=== PATIENT | female | born 1950 | race Caucasian/White ===

== ENCOUNTER 2019-06-23 09:28 | Outpatient (CLI) | payer MEDICARE, BC | END 2019-06-23 09:29 | disposition home or self-care (01) | LOC: CTENTCT 09:28 | PROVIDERS: ATTEND Student in an Organized Health Care Education/Training Program | DX: J32.9 Chronic sinusitis, unspecified (principal) | CPT/HCPCS: 70486 ==

== ENCOUNTER 2019-08-22 06:20 | Outpatient (CLI) | payer MEDICARE, BC, OTHER ==
[2019-08-22 11:41] LABS: Hemoglobin 14.6 g/dL (12.0-16.0)
[2019-08-22 12:05] LABS: Anion Gap 12 mmol/L (10-20); BUN (Urea Nitrogen) 17 mg/dL (9.8-20.1); Calc. Creatinine Clearance 0 mL/min (70-130); Calcium 10.7 mg/dL (7.8-10.44); Carbon Dioxide 24 mmol/L (23-31); Chloride 110 mmol/L (98-107); Estimated GFR-MDRD 85; Glucose 105 mg/dL (80-115); Sodium 142 mmol/L (136-145)
[2019-08-22 17:22] LABS: SARS-CoV-2 MS2 Positive; SARS-CoV-2 N Gene Negative; SARS-CoV-2 S Gene Negative; SARS-CoV-2 orf1ab Negative
== END 2019-08-22 06:21 | disposition home or self-care (01) ==
LOC: LABBT 06:20
PROVIDERS: ATTEND Student in an Organized Health Care Education/Training Program
DX: Z01.818 Encounter for other preprocedural examination (principal); Z11.59 Encounter for screening for other viral diseases; J32.9 Chronic sinusitis, unspecified
CPT/HCPCS: 80048; 85014; 85018; 93005; U0003; 87635; 93010

== ENCOUNTER 2020-03-31 08:36 | Outpatient (CLI) | payer MEDICARE, BC ==
--- NOTE | 2020-03-31 12:29 | NM ---
Radionucleotide parathyroid scan HISTORY: Hyperparathyroidism. FINDINGS: Intermediate and 1 hour images show physiologic uptake of radiotracer within the salivary g lands and thyroid gland. Uptake over the right subclavian vein and the focus of uptake at the right supraclavicular level likely related to small amount of infiltration during radiotracer injection in the right arm. No corresponding mass or lymph node on the CT images. On the 2 hour delayed images, a focus of increased radiotracer uptake lies immediately posterior to t he left thyroid lobe, running somewhat vertically linear just to the left of the esophagus. On the CT attenuation correction images, a non-hyperdense linear lesion is present with a tubular vessel ext ending inferiorly from it. IMPRESSION : Positive exam. Evidence of parathyroid adenoma immediately posterior to the left thyroid lobe.
== END 2020-03-31 08:37 | disposition home or self-care (01) ==
LOC: NM 08:36
PROVIDERS: ATTEND Student in an Organized Health Care Education/Training Program
DX: E21.3 Hyperparathyroidism, unspecified (principal); D35.1 Benign neoplasm of parathyroid gland
CPT/HCPCS: 78072; A9500

== ENCOUNTER 2020-05-25 06:01 | Observation (INO) | payer MEDICARE, BC ==
[2020-05-25] MEDS ORDERED: Fentanyl 250 MCG/5 ML VIAL ONE (06:38)
[2020-05-25] MEDS ORDERED: Midazolam HCl 2 mg/2 ml Vial ONE (06:38)
[2020-05-25] MEDS ORDERED: XYLOCAINE 2%-EPI 1:100,000 20 ML VIAL ONE (07:50)
[2020-05-25] MEDS ORDERED: Phenylephrine 10 MG/ML VIAL ONE (08:03)
[2020-05-25] MEDS ORDERED: SUGAMMADEX SODIUM 200 MG/2 ML VIAL ONE (09:32)
[2020-05-25] MEDS ORDERED: Metoprolol Tartrate 5 MG/5 ML VIAL ONE (10:12)
[2020-05-25] MEDS ORDERED: Ketorolac Tromethamine 30 MG/ML VIAL IVP PRN (10:15)
[2020-05-25] MEDS ORDERED: Promethazine HCl 25 MG/ML VIAL IM PRN (10:15)
[2020-05-25] MEDS ORDERED: Meperidine HCl/PF 25 MG/ML VIAL SLOW IVP PRN (10:15)
[2020-05-25] MEDS ORDERED: HYDROmorphone 2 MG/ML VIAL SLOW IVP PRN (10:15)
[2020-05-25] MEDS ORDERED: Ondansetron HCl/PF 4 MG/2 ML Vial IVP PRN (10:15)
[2020-05-25] MEDS ORDERED: Promethazine HCl 25 MG/ML VIAL SLOW IVP PRN (10:15)
[2020-05-25] MEDS ORDERED: Morphine Sulfate 2 MG/ML SYRINGE SLOW IVP PRN (10:15)
[2020-05-25] MEDS ORDERED: HYDROcodone/Acetaminophen 5/325 mg Tablet PO PRN ×2 (10:25)
[2020-05-25] MEDS ORDERED: Ondansetron PF 4 MG/2 ML Vial IVP PRN (10:27)
[2020-05-25] MEDS ORDERED: Calcium Gluconate 4.6 MEQ in Sodium Chloride 0.9% 100 ML IVPB SCH (10:30)
[2020-05-25] MEDS ORDERED: Metoprolol Tartrate 5 MG/5 ML VIAL IVP SCH (10:30)
[2020-05-25] MEDS ORDERED: Calcitriol 0.25 MCG CAP PO SCH (10:30)
[2020-05-25] MEDS ORDERED: Calcium Gluconate 9.2 MEQ in Sodium Chloride 0.9% 100 ML IVPB SCH (11:00)
[2020-05-25] MEDS: Lactated Ringer's 1,000 ML IV SCH (12:58)
[2020-05-25] MEDS: Calcium Carbonate 500 MG ChewTAB PO SCH ×2 (12:58→17:14)
[2020-05-25] MEDS ORDERED: Dexamethasone 20 MG/5 ML VIAL ONE (15:08)
[2020-05-25] MEDS ORDERED: PROPOFOL 200 MG/20 ML VIAL ONE (15:08)
[2020-05-25] MEDS ORDERED: Ondansetron PF 4 MG/2 ML Vial ONE (15:08)
[2020-05-25] MEDS ORDERED: Rocuronium Bromide 10 MG/ML (10ML VIAL) ONE (15:08)
[2020-05-25] MEDS ORDERED: Lidocaine 1% PF 5 ML VIAL ONE (15:08)
[2020-05-25 17:24] VITALS: BMI 20.2
[2020-05-25] MEDS: Docusate Sodium 100 MG/10 ML UDCUP PO SCH (22:37)
[2020-05-26 06:36] LABS: Calcium 9.8 mg/dL (7.8-10.44); Magnesium 1.7 mg/dL (1.6-2.6); Phosphorus 4.1 mg/dL (2.3-4.7)
[2020-05-26] MEDS: Docusate Sodium 100 MG/10 ML UDCUP PO SCH (08:36)
[2020-05-26] MEDS: Calcium Carbonate 500 MG ChewTAB PO SCH ×2 (08:36→12:04)
[2020-05-26] MEDS ORDERED: Magnesium 2 GM/50 ML 2 GM in Premix Bag 1 BAG IVPB SCH (09:00)
[2020-05-26] MEDS ORDERED: Calcitriol 0.25 MCG CAP PO SCH (09:00)
[2020-05-26] MEDS: Lactated Ringer's 1,000 ML IV SCH (09:36)
[2020-05-26 11:31] VITALS: BP 116/74
[2020-05-26 11:32] VITALS: TEMP 97.5
--- NOTE | 2020-05-27 06:52 | OP ---
DATE OF PROCEDURE: 05/25/2020 CHIEF COMPLAINT: Hyperparathyroidism and hypercalcemia. PREOPERATIVE DIAGNOSES: Hyperparathyroidism, hypercalcemia, parathyroid adenoma, osteopenia. POSTOPERATIVE DIAGNOSES: Parathyroid adenoma, superior and inferior; hypercalcemia; hyperparathyroidism; and osteopenia. PROCEDURES PERFORMED: Excision of left superior and inferior parathyroid. PERMIT: Procedures, benefits, and risks including those of bleeding, infection, injury from anesthesia, allergic reaction, scar tissue, damage to nerves and vessels, hoarseness and shortness of breath were discussed with the patient and family, who expressed the understanding of the information and consent form was signed and witnessed and a paper copy of the consent form is available for review in the paper chart. INDICATION: This is a female patient, presenting to clinic with osteopenia, hypercalcemia, and hyperparathyroidism with nuclear medicine scan identifying localizing left inferior and left mid potential parathyroid adenoma with increased uptake. Given the risks and benefits, the patient opted for an operative intervention. ASSISTANTS: None. FINDINGS: Left superior and left inferior parathyroid adenomas measuring greater than 200 mg inferiorly and greater than 600 mg superiorly. DESCRIPTION OF PROCEDURE: The patient was brought to the operating room and laid supine on the operating room table. General endotracheal anesthesia was administered. The airway and landmarks were outlined with a marking pen and a midline incision inferior to the cricoid and superior to the sternal notch was identified in a natural skin crease. The area was marked and 1% lidocaine with 1:100,000 epinephrine was injected. After this was completed, the patient was then prepped and draped in a sterile fashion and the procedure commenced. A 15 blade scalpel was used to make an incision through the epidermis and the dermis down to the subcutaneous tissue. After that was completed, a Bovie cautery on a setting of 15 was used to further incise the subcutaneous tissue through the platysma, which was identified more prominent on the left side. After this was completed, saen rakes were placed superiorly and subplatysmal flap was elevated saen rakes were then placed inferiorly and subplatysmal flap was elevated with the help of Bovie cautery and blunt dissection. After these flaps were elevated, dissection continued until the left sternocleidomastoid muscle was identified and the strap muscle was identified. Blunt dissection with a curved gently and bipolar cautery was used to incise the fascia, exposing the strap muscles and the sternocleidomastoid. [place] retractors were placed to retract the muscles. The jugular vein and the carotid artery were identified laterally. The lateral aspect of the left thyroid gland was identified. After this was completed, the thyroid was retracted medially and blunt dissection was used to identify first an inferior parathyroid gland with heralding fat. The gland was significantly larger than would be expected. Given the size and location of the parathyroid gland and the localizing scan, the parathyroid was excised with blunt dissection and bipolar cautery and then placed in saline the parathyroid gland sunk completely in saline. It was then sent for pathology for frozen section and for permanent pathology as well. Next, it was noted that there was superiorly identified parathyroid gland, which was much larger than the inferior parathyroid gland and heralding fat around parathyroid tissue. Blunt dissection was used to expose the gland, which was significantly larger than would be expected for a normal parathyroid gland. At this point, given the location and the size of the parathyroid tissue, dissection and removal of the gland proceeded with blunt dissection and bipolar cautery. After the gland was completely removed, it was placed in saline and found that it sunk as well and was sent for both frozen and for permanent pathology. After dissection was completed, the wound was irrigated thoroughly and hemostasis was achieved with bipolar cautery. The left recurrent laryngeal nerve was identified in the tracheoesophageal groove headed towards the cricothyroid joint. A small stamp shaped piece of Surgicel was placed in the wound and the wound was packed with saline-soaked gauze to await for confirmation of drop in the parathyroid hormone. Previously to the surgery at baseline a parathyroid lab was drawn which was 132. Manipulation of the parathyroid glands at that time a PTH lab was drawn, which showed a level of 202 and then after the parathyroid glands were excised 15 minutes post excision, a lab was drawn and resulted in 54. Given that this was a greater than 50% drop and given that hemostasis was achieved, the patient's wound was then closed in layers with 3-0 Vicryl subplatysmal stitch as well as the subcutaneous layer and then 4-0 Prolene subcuticular stitch anchored with Steri-Strips and the patient was then turned over to Anesthesia for emergence and admitted for postoperative observation. there were no complications [facility] ID: [id number] [facility]
== END 2020-05-26 12:16 | disposition home or self-care (01) ==
LOC: SDC 06:01 → SURG B 10:18
PROVIDERS: ADMIT Student in an Organized Health Care Education/Training Program; ATTEND Student in an Organized Health Care Education/Training Program
PROC: 0GTP0ZZ Resection of Left Inferior Parathyroid Gland, Open Approach (ICD-10-PCS; principal; 2020-05-25)
PROC: 0GTM0ZZ Resection of Left Superior Parathyroid Gland, Open Approach (ICD-10-PCS; 2020-05-25)
DX: D35.1 Benign neoplasm of parathyroid gland (principal); E21.3 Hyperparathyroidism, unspecified; M85.80 Other specified disorders of bone density and structure, unspecified site; Z79.83 Long term (current) use of bisphosphonates; Z79.899 Other long term (current) drug therapy
CPT/HCPCS: 36415; 82310; 83735; 83970; 84100; 88304; 88305; 88331; 88334; 96374; 96375; G0378; J0690; J1100; J2001; J2250; J2370; J2405; J2704; J3010; J3475; J3490